=== PATIENT | female | born 1985 | race Caucasian/White ===

== ENCOUNTER 2018-05-11 23:07 | Emergency (ER) | payer BC ==
[~2018-05-11] VITALS: Ht 165.1 cm; Wt 95.5 kg
[~2018-05-11 23:07] MED LIST: FLEXERIL 1010 MG/TAB PO; GOLYTELY SOLU4000 ML PO; SPRINTEC 35 MCG1 TAB PO; WELLBUTRIN XL150 MG PO
[2018-05-11 23:15] VITALS: TEMP 97.8
[2018-05-12] MEDS ORDERED: FLEXERIL 1010 MG/TAB PO (00:35)
[2018-05-12 00:55] VITALS: BP 116/85; PULSE 76
[2018-05-12] MEDS ORDERED: VASCEPA1 GM PO (01:12)
== END 2018-05-12 01:13 | disposition home or self-care (01) ==
LOC: COL.ER 23:07
DX: M94.0 Chondrocostal junction syndrome [Tietze] (principal); E66.9 Obesity, unspecified
CPT/HCPCS: J1885

== ENCOUNTER 2020-12-03 20:23 | Outpatient (CLI) | payer BC ==
[~2020-12-03] VITALS: Ht 165.1 cm; Wt 106.8 kg
[~2020-12-03 20:23] MED LIST changes: +VASCEPA1 GM PO
[2020-12-03 20:45] VITALS: BP 120/69; PULSE 80
--- NOTE | 2020-12-03 20:45 | NUR ---
Reviewed EFM tracing with pt and spouse, educated on movements, kick counts, HTN in , preeclampsia, plan of care for induction date. Questions invited and answered.
[2020-12-03] MEDS ORDERED: TRANDATE 100MG100 MG PO (21:14)
[2020-12-03] MEDS ORDERED: PRENATAL TABLET PO (21:14)
[2020-12-03] MEDS ORDERED: VALTREX 50500 MG/TAB PO (21:16)
--- NOTE | 2020-12-03 21:30 | NUR ---
Discharge ambulatory off unit with spouse after reviewing discharge instructions.
== END 2020-12-03 21:30 | disposition home or self-care (01) ==
LOC: LDRO 20:23 → LDR 21:10 → LDRO 21:30
DX: O36.8130 Decreased fetal movements, third trimester, not applicable or unspecified (principal); Z3A.38 38 weeks gestation of pregnancy
CPT/HCPCS: OP

== ENCOUNTER → 2020-12-08 | Outpatient (CLI) | payer BC ==
[~2020-12-08] MED LIST changes: +CALCIUM-500 5001 CTB PO; +IBU800 M1 PO; +PERCOCET 325 MG1 TA2 PO; +PRENATAL TABLET PO; +TRANDATE 100MG100 MG PO; +VALTREX 50500 MG/TAB PO
== END ==
LOC: ZCOL.LAB 14:57
DX: Z20.822 Contact with and (suspected) exposure to COVID-19 (principal)

== ENCOUNTER 2020-12-13 10:23 | Inpatient (IN) | payer BC ==
[2020-12-13] VITALS (9 sets, daily range): BP systolic 98–133; BP diastolic 54–75; PULSE 68–89; TEMP 98
[~2020-12-13] VITALS: Ht 165.1 cm; Wt 107.3 kg
[~2020-12-13 10:23] MED LIST changes: -CALCIUM-500 5001 CTB PO; -IBU800 M1 PO; -PERCOCET 325 MG1 TA2 PO
--- NOTE | 2020-12-13 19:05 | NUR ---
G1L0. 39-5. Ambulatory to LDR 5 with spouse. Clean gown on. EFM and TOCO explained and applied. Plan of care and pt's and spouse's questions answered. Pt denies contractions, reports mild cramping. Denies leaking of fluids or vaginal bleeding. Reports good movement. 1926: IV started and labs obtained via IV site. 1956: Cytotec explained. SVE /-3. Cytotec placed per orders. Pt repostioned left lateral and instructed to lay LL for 2 hours. Pt verbalized her understanding. 2050: Pt unable to wait the 2 hours to use restroom. Pt up to bathroom.
[2020-12-13] MEDS ORDERED: CALCIUM-500 5001 CTB PO (19:45)
[2020-12-13 20:45] LABS: HEMOGLOBIN 12.1 g/dl (12.5-16.0); MEAN CELL VOLUME 83 fl (80.0-100.0); MEAN CORPUSCULAR HEMOGLOBIN 29 pg (27.0-31.0); MEAN CORPUSCULAR HGB CONC 34 g/dl (33.0-37.0); MEAN PLATELET VOLUME 10.6 fl (7.4-10.4); PLATELET COUNT 263 K/mm3 (130-400); RED BLOOD COUNT 4.24 M/mm3 (4.10-5.30); REDCELL DISTRIBUTION WIDTH-CV 14.5 % (11.5-14.5)
[2020-12-13 20:58] LABS: HEMATOCRIT 35.3 % (37.0-47.0)
[2020-12-13 21:41] LABS: BAND 4 % (0-10); LYMPHOCYTE 20 % (20.0-51.0); METAMYELOCYTE 1 % (0-0); MYELOCYTE 1 % (0-0); NEUTROPHILS 73 % (42.0-75.2); PLATELET ESTIMATE NORMAL (NORMAL)
[2020-12-14] VITALS (73 sets, daily range): BP systolic 92–151; BP diastolic 51–113; PULSE 61–97; TEMP 97.5–98.9
--- NOTE | 2020-12-14 | NUR ---
Pt reports mild cramping. FHR reactive. SVE unchanged. Second dose of cytotec placed.
--- NOTE | 2020-12-14 04:12 | NUR ---
Pt off the monitor to shower prior to starting pitocin. FHR reactive.
--- NOTE | 2020-12-14 05:17 | NUR ---
Justin explained and questions answered. Medications started at this time
--- NOTE | 2020-12-14 07:30 | NUR ---
0730-Dr. Caputo on unit. Reviews FHR monitor and chart. Patient up to bathroom and returns to bed WL. Dr. Caputo to room. Reviews plan of care. 0738-SVE by -/-2 AROM clear fluid noted.
--- NOTE | 2020-12-14 08:07 | NUR ---
[id number] monitoring FHR due to maternal position standing. RN at bedside frequently readjusting EFM.
[2020-12-14 11:28] LABS: COLLECTION METHOD CLEAN CATCH
[2020-12-14 11:39] LABS: BILIRUBIN,TOTAL 0.4 mg/dL (0.2-1.2); CALCIUM 9.3 mg/dL (8.4-10.2); CREATININE, serum 0.65 mg/dL (0.57-1.11); POTASSIUM 3.8 mmol/L (3.5-4.5); TOTAL PROTEIN 6.5 gm/dL (6.2-8.1)
[2020-12-14 11:40] LABS: MUCOUS Present /lpf; PH 5 (5-8); URINE APPEARANCE Hazy; URINE BACTERIA None Seen /hpf; URINE BILIRUBIN Negative (NEGATIVE); URINE BLOOD 2+ (NEGATIVE); URINE COLOR Yellow; URINE GLUCOSE Negative (NEGATIVE); URINE KETONE Negative (NEGATIVE); URINE LEUKOCYTE ESTERASE Trace (NEGATIVE); URINE NITRATE Negative (NEGATIVE); URINE PROTEIN(semi-quant) Negative (NEGATIVE); URINE RBC >50 /hpf; URINE UROBILINOGEN Negative (NEGATIVE)
--- NOTE | 2020-12-14 12:15 | NUR ---
1215-Patient sitting upright for epidural placement. Difficulty maintaining continuous tracing of FHR due to maternal positioning. 1227-Test dose administered by KEON Middleton. VSS, Patient tolerated well see anesthesia records. Repositioned WL. Updated on plan of care and safety. Continued difficulty maintaining tracing of FHR 1247-FSE placed by This RN. SVE 3-/-2.
--- NOTE | 2020-12-14 15:18 | NUR ---
1505-Dr. Caputo on unit. Reviews FHR monitor. Orders to decrease pit to 14 mu and resume increasing per protocol, then recheck cervix in one hour and update her.
--- NOTE | 2020-12-14 16:15 | NUR ---
1615-FSE not tracing well, RN adjusted monitor and checked placement, unable to conintue to maintain tracing so switcched back to [facility]
--- NOTE | 2020-12-14 19:15 | NUR ---
191- DR. HEATH TO BEDSIDE TO DISCUSS OPTIONS WITH PATIENT AND PLACE [facility]. 191- PROVIDER VERBALIZED UNCHANGED SVE AT 5/80/-2. [facility] PLACED AT THIS TIME. 192- PROVIDER AND RN AT BEDSIDE WITH FHR STARTED TO DECELERATE INTO THE 70S. MATERNAL 02 MONITOR PLACED. PROVIDER DID SVE AND FOUND THAT THE FSE HAD DISLODGED. PROVIDER AND RN HAD SWITCHED PATIENT TO LL AND THEN TO RL AND BACK TO HER BACK DURING THIS TIME. 1922- NEW FSE PLACED. FHR TRACING AT IN 150S AND DECCELERATED MARY TO 90S AND RETURNED TO 125 RANGE AFTER THIS. 1928- PROVIDER AND RN PLACED PATIENT IS WR POSITION. FHR DECELERATED DOWN TO 60S AGAIN. PROVIDER AND RN PLACED PATIENT BACK TO HER BACK AND RAISED HOB. 193- FHR RETURNING TO BASELINE. PITOCIN TURNED OFF PER PROVIDER AND 02 PLACED ON MOTHER.
[2020-12-15] VITALS (7 sets, daily range): BP systolic 110–126; BP diastolic 63–79; PULSE 61–102; TEMP 97.7–98.6
[2020-12-15] MEDS ORDERED: PERCOCET 325 MG1 TA2 PO (08:27)
[2020-12-15] MEDS ORDERED: IBU800 M1 PO (08:27)
--- NOTE | 2020-12-15 09:45 | NUR ---
Initial visit; Parents thanked Operator Technician for offering congratulations and God's blessings for the of their daughter. Operator Technician thanked family for choosing our hospital.
[2020-12-16 09:00] VITALS: BP 125/66; PULSE 92; TEMP 98.1
== END 2020-12-16 15:00 | disposition home or self-care (01) | DRG 787 ==
LOC: OB 10:23 → LDR 19:02 → OB 12-14 22:00
PROVIDERS: ADMIT Student in an Organized Health Care Education/Training Program
PROC: 3E0P7VZ Introduction of Hormone into Female Reproductive, Via Natural or Artificial Opening (ICD-10-PCS; 2020-12-14)
PROC: 10D00Z1 Extraction of Products of Conception, Low, Open Approach (ICD-10-PCS; principal; 2020-12-15)
PROC: 10907ZC Drainage of Amniotic Fluid, Therapeutic from Products of Conception, Via Natural or Artificial Opening (ICD-10-PCS; 2020-12-15)
PROC: 3E033VJ Introduction of Other Hormone into Peripheral Vein, Percutaneous Approach (ICD-10-PCS; 2020-12-15)
DX: O10.92 Unspecified pre-existing hypertension complicating childbirth (principal); O98.32 Other infections with a predominantly sexual mode of transmission complicating childbirth; Z37.0 Single live birth; O99.214 Obesity complicating childbirth; O99.824 Streptococcus B carrier state complicating childbirth; O62.0 Primary inadequate contractions; O76 Abnormality in fetal heart rate and rhythm complicating labor and delivery; O99.344 Other mental disorders complicating childbirth; F32.A Depression, unspecified; A60.09 Herpesviral infection of other urogenital tract; Z3A.39 39 weeks gestation of pregnancy
CPT/HCPCS: J0690; J1885; J2370; J2405; J2540; J2590; J7120

== ENCOUNTER → 2021-12-27 | Outpatient (CLI) | payer BC ==
[~2021-12-27] MED LIST changes: +CALCIUM-500 5001 CTB PO; +IBU800 M1 PO; +PERCOCET 325 MG1 TA2 PO
== END ==
LOC: COL.RAD 14:39
DX: O36.8310 Maternal care for abnormalities of the fetal heart rate or rhythm, first trimester, not applicable or unspecified (principal); O20.0 Threatened abortion; Z3A.01 Less than 8 weeks gestation of pregnancy